=== PATIENT | male | born 1960 | race Caucasian/White ===

== ENCOUNTER → 2024-01-07 14:28 | Outpatient (REF) | payer OTHER, SELFPAY | LOC: HWRAD 14:28 | PROVIDERS: ATTENDING PHYSICIAN Internal Medicine Infectious Disease | DX: E55.9 Vitamin D deficiency, unspecified (principal) | CPT/HCPCS: 77080 ==

== ENCOUNTER → 2024-06-09 11:01 | Outpatient (REF) | payer OTHER, SELFPAY | LOC: RCS 11:01 | PROVIDERS: ATTENDING PHYSICIAN Internal Medicine Infectious Disease | DX: R27.0 Ataxia, unspecified (principal); W19.XXXA Unspecified fall, initial encounter | CPT/HCPCS: 93005 ==

== ENCOUNTER 2024-06-26 14:52 | Outpatient (RCR) | payer OTHER, SELFPAY | END 2024-06-26 23:59 | disposition home or self-care (01) | LOC: RPT 14:52 | PROVIDERS: ATTENDING PHYSICIAN Psychiatry & Neurology Neurology; PRIMARYCARE PHYSICIAN Internal Medicine Infectious Disease | DX: R27.0 Ataxia, unspecified (principal); Z73.6 Limitation of activities due to disability | CPT/HCPCS: 97110; 97112; 97162 ==

== ENCOUNTER → 2024-07-10 07:21 | Outpatient (REF) | payer OTHER, SELFPAY | LOC: PAVMRI 07:21 | PROVIDERS: ATTENDING PHYSICIAN Psychiatry & Neurology Neurology; FAMILY PHYSICIAN Internal Medicine Infectious Disease | DX: R47.1 Dysarthria and anarthria (principal); R27.0 Ataxia, unspecified | CPT/HCPCS: 70553; A9575 ==

== ENCOUNTER 2024-07-17 09:50 | Outpatient (RCR) | payer OTHER, SELFPAY | END 2024-07-17 23:59 | disposition home or self-care (01) | LOC: RST 09:50 | PROVIDERS: ATTENDING PHYSICIAN Psychiatry & Neurology Neurology; PRIMARYCARE PHYSICIAN Internal Medicine Infectious Disease | DX: R47.1 Dysarthria and anarthria (principal) | CPT/HCPCS: 92507; 92523; 97110; 97112; 97530 ==

== ENCOUNTER 2024-08-27 10:34 | Outpatient (RCR) | payer OTHER, SELFPAY | END 2024-08-27 23:59 | disposition home or self-care (01) | LOC: RST 10:34 | PROVIDERS: ATTENDING PHYSICIAN Psychiatry & Neurology Neurology; PRIMARYCARE PHYSICIAN Internal Medicine Infectious Disease | DX: R47.1 Dysarthria and anarthria (principal); R27.0 Ataxia, unspecified; Z73.6 Limitation of activities due to disability | CPT/HCPCS: 92507; 97110; 97112; 97530 ==

== ENCOUNTER 2024-09-04 09:25 | Outpatient (RCR) | payer OTHER, SELFPAY | END 2024-09-12 13:10 | disposition home or self-care (01) | LOC: RST 09:25 | PROVIDERS: ATTENDING PHYSICIAN Psychiatry & Neurology Neurology; PRIMARYCARE PHYSICIAN Internal Medicine Infectious Disease | DX: R47.1 Dysarthria and anarthria (principal) | CPT/HCPCS: 92507 ==

== ENCOUNTER → 2024-12-04 14:24 | Outpatient (REF) | payer OTHER, SELFPAY | LOC: RCS 14:24 | PROVIDERS: ATTENDING PHYSICIAN Internal Medicine Infectious Disease | DX: R06.09 Other forms of dyspnea (principal); W19.XXXD Unspecified fall, subsequent encounter; R42 Dizziness and giddiness | CPT/HCPCS: 71046; 93306 ==